=== PATIENT | female | born 1960 | race Caucasian/White ===

== ENCOUNTER → 2018-02-02 | Outpatient (CLI) | payer OTHER ==
[2018-02-02] MEDS: GADOBUTROL 10 MMOL/10 ML VIAL IV (13:10)
== END | disposition home or self-care (01) ==
LOC: KCIC MRI 12:07
DX: G50.0 Trigeminal neuralgia (principal)
CPT/HCPCS: 70553; A9585

== ENCOUNTER → 2018-10-05 | Outpatient (CLI) | payer OTHER ==
[~2018-10-05] MED LIST: ACYC400T PO; ASPI325T8 PO; ATEN50TA PO; CELE100C PO; FLEC100T PO; FLUT100D IH; PRED-220 PO; PROAIR HFA8.5 GM INH
--- NOTE | 2018-10-05 14:21 | KCIC ---
MRI left hip without contrast dated 10/05/2018 12:30 PM Indication: Left hip pain , groin pain pain after doing yoga 3 weeks ago. Comparison: No comparison is available. Technique: Routine multiplanar multisequence imaging performed. . Findings: Moderate hypertrophic change of the left hip joint with thinning and surface irregularity of the articular cartilage. There is suspected full-thickness cartilage loss at the anterior acetabulum and anterior weightbearing surfaces femoral head. Patchy subchondral edema. There is blunted morphology of the anterior superior labrum with some linear signal extending into the labral substance near the 12:00 position. Small joint effusion. No loose body. There is a small curvilinear focus of low T1 signal within the femoral neck laterally near the level of the physeal scar (coronal images 14 and 15). Intermediate T2 signal within the gluteus minimus and gluteus medius tendons at the trochanteric attachment. No significant trochanteric bursal fluid collection. Mild fatty atrophy of the gluteus minimus muscle. Proximal hamstring tendon complex is intact. Iliopsoas is intact. Mild hypertrophic change of the right hip joint on the wide [id number] STIR sequences. Bone marrow signal is otherwise homogeneous. Mild degenerative change of the pubic symphysis. Limited imaged portions the pelvis unremarkable. IMPRESSION: 1. 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 2. Degenerative tearing of the left hip labrum. 3. Small left hip joint effusion. 4. Small curvilinear focus of signal abnormality at the femoral neck on the left, reactive edema versus stress reaction or early stress fracture. 5. Mild degenerative change at the right hip, incompletely evaluated. 6. Mild gluteus minimus and gluteus medius tendinosis. Electronically signed by: Fan Monteiro MD (10/05/2018 2:18 PM) [facility]-KCIC2
== END | disposition home or self-care (01) ==
LOC: KCIC MRI 12:37
DX: S73.192A Other sprain of left hip, initial encounter (principal); M16.12 Unilateral primary osteoarthritis, left hip; M94.252 Chondromalacia, left hip; X58.XXXA Exposure to other specified factors, initial encounter; Y93.89 Activity, other specified; Y92.89 Other specified places as the place of occurrence of the external cause; Y99.8 Other external cause status
CPT/HCPCS: 73721

== ENCOUNTER 2020-07-27 13:15 | Observation (INO) | payer OTHER ==
[2020-07-26 19:35] VITALS: BP 121/70
[~2020-07-27] VITALS: Ht 162.6 cm; Wt 103.6 kg
[~2020-07-27 13:15] MED LIST changes: +ALBU2.5V8 INH; -PROAIR HFA8.5 GM INH
[2020-07-27] MEDS ORDERED: IV NORMAL SALINE 500ML BAG 500 ML IV ONE (13:30)
--- NOTE | 2020-07-27 13:44 | PHYS DOC ---
Past Medical History Past Medical History: A-Fib, Asthma, Hypothyroid Past Surgical History: Hip Replacement, Hysterectomy Additional Past Surgical Histo: CRANIOTOMY, L THUMB JOINT REPLACEMENT Smoking Status: Former Smoker Alcohol Use: Rarely Additional Information: GLASS OF WINE EVERY ONCE IN A WHILE General Adult EDM: Chief Complaint: MECHANICAL FALL HPI: HPI: 59-year-old female presents emergency department by EMS after falling and injuring her left arm. She was going down the stairs when she fell and injured her left arm. Paramedics were called. Patient had a deformity of the left humeral region. They put her in a position of comfort in anatomic position and brought her in for evaluation. She has some moderate pain that was treated with fentanyl which is improved her pain. It was nonradiating without alleviating factors. She denies any numbness weakness or tingling. She denies any other injuries. Review of systems : she denies head injury neck pain back pain hip pain chest pain or abdominal pain. All other review of systems negative. ED course: 59-year-old female presenting with left arm injury after a fall. The remainder the secondary survey shows no other acute traumatic injuries. X-rays of the humerus and shoulder were obtained. X-ray shows midshaft humeral fracture. I spoke with Dr. De La Cruz about the patient. We will place the patient in a sling with a sugar tong around the humerus. Patient was placed in a sling. Basic bridge orders placed. No other traumatic injuries seen on secondary survey. Heart Score: Risk Factors: Risk Factors: DM, Current or recent (<one month) smoker, HTN, HLP, family history of CAD, obesity. Risk Scores: Score 0 - 3: 2.5% MACE over next 6 weeks - Discharge Home Score 4 - 6: 20.3% MACE over next 6 weeks - Admit for Clinical Observation Score 7 - 10: 72.7% MACE over next 6 weeks - Early Invasive Strategies Current Medications: Current Medications Medications (Trade) Dose Ordered Sig/Gabriela Start Time Stop Time Status Last Admin Dose Admin Sodium Chloride 500 ml @ 500 mls/hr 1X ONCE 07/27/20 13:30 07/27/20 14:29 Allergies: Allergies: Allergies Coded Allergies Type Severity Reaction Last Updated Verified No Known Drug Allergies 02/02/18 No Physical Exam: PE: General Appearance alert, cooperative, no distress, responsive Head Normocephalic, without obvious abnormality, atraumatic Eyes conjunctivae/corneas clear. PERRL, EOM's intact. Nose Nares normal. Septum midline. Mucosa normal. No drainage or sinus t enderness. Throat no blood or lacerations, normal alignment Neck supple, symmetrical, trachea midline, cervical collar in place Back/Spine symmetric, normal curvature. ROM normal, no abrasions, no tenderness to palpation, no step-offs Lungs clear to auscultation bilaterally Chest Wall normal ribcage without tenderness to palpation, crepitus or emphysema Heart [] rate and regular rhythm, S1, S2 normal, no murmur, click, rub or gallop Abdomen soft, non-tender. Bowel sounds normal. No masses, no organomegaly Pelvic stable Extremities Right upper extremity: Nontender at the joints with normal range of motion. Palpable pulse with 2-second cap refill. Left upper extremity: Deformity of the humeral region. Neurovascular intact with 2-second cap refill. Tenderness palpation Lower extremities bilaterally are nontender at the joints with normal range of motion. Palpable pulse with 2-second cap refill. No pain in the hips with passive range of motion of the hips. Stable pelvis. Pulses 2+ and symmetric Skin Skin color, texture, turgor normal. No rashes or lesions Neurologic Grossly normal Eye opening: (4) spontaneous Best motor response: (6) obeys verbal command Best verbal response: (5) oriented and converses Total Mark (E + M + V) = 15 Current Patient Data: Vital Signs: Vital Signs Date Time Temp Pulse Resp B/P (MAP) Pulse Ox O2 Delivery O2 Flow Rate FiO2 07/27/20 13:15 97.9 68 18 107/68 (81) 96 Room Air 97.9 EKG: EKG: [] Radiology/Procedures: Radiology/Procedures: [] Course & Med Decision Making: Course & Med Decision Making Pertinent Labs and Imaging studies reviewed. (See chart for details) [] Bebaon Disclaimer: Poli Disclaimer: This electronic medical record was generated, in whole or in part, using a voice recognition dictation system. Departure Departure Impression: Primary Impression: Injury of left upper arm Disposition: ADMITTED INPATIENT Admitting Physician: DAKOTAH Condition: STABLE Referrals: JODIE PZA DO, MPH (PCP) Justicifation of Admission Dx: Justifications for Admission: Justification of Admission Dx: Yes Comments: HUMERUS FRACTURE RAMOS,VENICE L MD Jul 27, 2020 13:44
[2020-07-27 14:20] LABS: BASO # 0.1 x10^3/uL (0.0-0.2); BASO % 1 % (0-3); EOS # 0.1 x10^3/uL (0.0-0.7); EOS % 1 % (0-3); HEMOGLOBIN 14.5 g/dL (12.0-15.5); LYMPH # 1.2 x10^3/uL (1.0-4.8); LYMPH % 11 % (24-48); MEAN CORPUSCULAR HEMOGLOBIN 33 pg (25-35); MEAN CORPUSCULAR HGB CONC 33 g/dL (31-37); MEAN CORPUSCULAR VOLUME 98 fL (79-100); MONO # 0.5 x10^3/uL (0.0-1.1); MONO % 4 % (0-9); NEUT % 83 % (31-73); PLATELET COUNT 213 x10^3/uL (140-400); RED BLOOD COUNT 4.48 x10^6/uL (3.50-5.40); WHITE BLOOD COUNT 10.8 x10^3/uL (4.0-11.0)
--- NOTE | 2020-07-27 14:42 | RAD ---
HUMERUS LEFT, SHOULDER 2+V LEFT DATE: 07/27/2020 1:24 PM INDICATION: LEFT ARM INJURY, pain COMPARISON: None. FINDINGS: Bones: Acute fracture of the mid to distal humeral diaphysis with lateral angulation. Joints: Mild degenerative changes of the acromioclavicular joint. Glenohumeral joint is congruent. The acromiohumeral distance is not narrowed. Miscellaneous: No abnormal soft tissue calcifications in the shoulder. IMPRESSION: Acute displaced humeral diaphysis fracture. Electronically signed by: Dimas Colunga MD (07/27/2020 2:39 PM) [id number]
[2020-07-27 14:44] LABS: CALCIUM 8.6 mg/dL (8.5-10.1); CREATININE 0.9 mg/dL (0.6-1.0); GFR 63.7; POTASSIUM 4.2 mmol/L (3.5-5.1)
[2020-07-27 14:50] LABS: ALBUMIN 3.3 g/dL (3.4-5.0); ALBUMIN/GLOBULIN RATIO 1.1 (1.0-1.7); TOTAL BILIRUBIN 0.3 mg/dL (0.2-1.0); TOTAL PROTEIN 6.3 g/dL (6.4-8.2)
[2020-07-27] MEDS ORDERED: IV NORMAL SALINE 1000ML BAG 1,000 ML IV SCH (15:45)
[2020-07-27] MEDS: HYDROmorphone 2 MG/ML VIAL IV PRN ×2 (16:11→19:31)
--- NOTE | 2020-07-27 16:11 | PDOC2 ---
CONSULT Date of Consult Date of Consult DATE: 07/27/20 TIME: 16:08 Reason for Consult Reason for Consult: Closed left humeral shaft fracture, reportedly neurovascularly intact. Referring Physician Referring Physician: Lucas Identification/Chief Complaint Chief Complaint Left humerus fracture Source Source: Chart review, Patient History of Present Illness Reason for Visit: 59-year-old right-handed woman who fell at home, and fractured her left humerus. She was brought to the hospital by EMS. X-rays showed a humeral shaft fracture. This was closed, and she was neurovascularly intact and it is an isolated injury. When I spoke to Dr. Ramos yesterday I recommended nonoperative treatment in a splint. The patient was admitted for pain control I presume. She was under the impression she was having surgery today but I had a long discussion with her about the risks benefits and alternatives of surgical versus nonoperative management, and I recommended nonoperative treatment for her closed isolated neurovascularly intact humeral shaft fracture. She is currently in a splint, and we helped readjust her arm and put it in a sling in the appropriate position. She has some pain and some fracture crepitus with movement but otherwise reasonably comfortable. She denies neurovascular dysfunction distally. Past Medical History Cardiovascular: AFIB Pulmonary: Asthma Endocrine: Hypothyroidism Past Surgical History Past Surgical History craniotomy hip replacement thumb surgery Social History Social History occasional wine lives with in [place] has a cane and a walker at home Quit ALCOHOL: occassional Lives: with Family Current Problem List Problem List Problems Medical Problems: (1) Injury of left upper arm Status: Acute Current Medications Current Medications Current Medications Sodium Chloride 500 ml @ 500 mls/hr 1X ONCE IV Last administered on 07/27/20at 13:49; Start 07/27/20 at 13:30; Stop 07/27/20 at 14:29; Status DC Hydromorphone HCl (Dilaudid) 0.5 mg PRN Q30MIN PRN IV SEVERE PAIN 7-10; Start 07/27/20 at 15:45 Sodium Chloride 1,000 ml @ 100 mls/hr Q10H IV ; Start 07/27/20 at 15:45; Stop 07/27/20 at 19:44 Active Scripts Active Reported Proair Hfa Inhaler (Albuterol Sulfate) 8.5 Gm Hfa.aer.ad 1 Puff INH PRN Q6HRS PRN Flovent 100MCG Diskus (Fluticasone Propionate) 100 Mcg Disk.w.dev 1 Puff IH BID Celebrex (Celecoxib) 100 Mg Capsule 1 Cap PO BID Atenolol 50 Mg Tablet 1 Tab PO DAILY Flecainide Acetate 100 Mg Tablet 1 Tab PO BID Prednisone 10 Mg Tablet 10 Mg PO DAILY Acyclovir 400 Mg Tablet 1 Tab PO BID Aspirin 325 Mg Tablet 1 Tab PO DAILY Allergies Allergies: Coded Allergies: hydrocodone (Verified Allergy, Mild, N/V,"MAKES ME MEAN", 07/27/20) oxycodone (Verified Allergy, Mild, N/V/"MAKES ME MEAN", 07/27/20) ROS Review of System Review of systems : she denies head injury neck pain back pain hip pain chest pain or abdominal pain. All other review of systems negative. Physical Exam General: Alert, Cooperative HEENT: Atraumatic Heart: Regular rate Abdomen: Soft Extremities: Other (The left humerus is splinted, with a sugar tong/coaptation type splint, and appears comfortable in the splint. The alignment is grossly normal in the splint. The sling is intact now. Light touch sensation, capillary refill, pulses and motor function are all intact at the hand. She demonstrated radial median and ulnar nerve function without difficulty.) Skin: No significant lesion Neuro: Normal tone, Sensation intact MUSCULOSKELETAL: Abnormal exam of left (humerus as above) Vitals VITALS Vital Signs Date Time Temp Pulse Resp B/P (MAP) Pulse Ox O2 Delivery O2 Flow Rate FiO2 07/27/20 13:15 97.9 68 18 107/68 (81) 96 Room Air 97.9 Labs Labs Laboratory Tests Test 07/27/20 14:09 07/27/20 15:10 White Blood Count 10.8 x10^3/uL (4.0-11.0) Red Blood Count 4.48 x10^6/uL (3.50-5.40) Hemoglobin 14.5 g/dL (12.0-15.5) Hematocrit 44.0 % (36.0-47.0) Mean Corpuscular Volume 98 fL (79-100) Mean Corpuscular Hemoglobin 33 pg (25-35) Mean Corpuscular Hemoglobin Concent 33 g/dL (31-37) Red Cell Distribution Width 15.0 % (11.5-14.5) Platelet Count 213 x10^3/uL (140-400) Neutrophils (%) (Auto) 83 % (31-73) Lymphocytes (%) (Auto) 11 % (24-48) Monocytes (%) (Auto) 4 % (0-9) Eosinophils (%) (Auto) 1 % (0-3) Basophils (%) (Auto) 1 % (0-3) Neutrophils # (Auto) 9.0 x10^3/uL (1.8-7.7) Lymphocytes # (Auto) 1.2 x10^3/uL (1.0-4.8) Monocytes # (Auto) 0.5 x10^3/uL (0.0-1.1) Eosinophils # (Auto) 0.1 x10^3/uL (0.0-0.7) Basophils # (Auto) 0.1 x10^3/uL (0.0-0.2) Sodium Level 143 mmol/L (136-145) Potassium Level 4.2 mmol/L (3.5-5.1) Chloride Level 109 mmol/L (98-107) Carbon Dioxide Level 24 mmol/L (21-32) Anion Gap 10 (6-14) Blood Urea Nitrogen 24 mg/dL (7-20) Creatinine 0.9 mg/dL (0.6-1.0) Estimated GFR (Cockcroft-Gault) 63.7 BUN/Creatinine Ratio 27 (6-20) Glucose Level 133 mg/dL (70-99) Calcium Level 8.6 mg/dL (8.5-10.1) Total Bilirubin 0.3 mg/dL (0.2-1.0) Aspartate Amino Transf (AST/SGOT) 14 U/L (15-37) Alanine Aminotransferase (ALT/SGPT) 21 U/L (14-59) Alkaline Phosphatase 83 U/L (46-116) Total Protein 6.3 g/dL (6.4-8.2) Albumin 3.3 g/dL (3.4-5.0) Albumin/Globulin Ratio 1.1 (1.0-1.7) SARS-CoV-2 Antigen (Rapid) Negative (NEGATIVE) Laboratory Tests Test 07/27/20 14:09 07/27/20 15:10 White Blood Count 10.8 x10^3/uL (4.0-11.0) Red Blood Count 4.48 x10^6/uL (3.50-5.40) Hemoglobin 14.5 g/dL (12.0-15.5) Hematocrit 44.0 % (36.0-47.0) Mean Corpuscular Volume 98 fL (79-100) Mean Corpuscular Hemoglobin 33 pg (25-35) Mean Corpuscular Hemoglobin Concent 33 g/dL (31-37) Red Cell Distribution Width 15.0 % (11.5-14.5) Platelet Count 213 x10^3/uL (140-400) Neutrophils (%) (Auto) 83 % (31-73) Lymphocytes (%) (Auto) 11 % (24-48) Monocytes (%) (Auto) 4 % (0-9) Eosinophils (%) (Auto) 1 % (0-3) Basophils (%) (Auto) 1 % (0-3) Neutrophils # (Auto) 9.0 x10^3/uL (1.8-7.7) Lymphocytes # (Auto) 1.2 x10^3/uL (1.0-4.8) Monocytes # (Auto) 0.5 x10^3/uL (0.0-1.1) Eosinophils # (Auto) 0.1 x10^3/uL (0.0-0.7) Basophils # (Auto) 0.1 x10^3/uL (0.0-0.2) Sodium Level 143 mmol/L (136-145) Potassium Level 4.2 mmol/L (3.5-5.1) Chloride Level 109 mmol/L (98-107) Carbon Dioxide Level 24 mmol/L (21-32) Anion Gap 10 (6-14) Blood Urea Nitrogen 24 mg/dL (7-20) Creatinine 0.9 mg/dL (0.6-1.0) Estimated GFR (Cockcroft-Gault) 63.7 BUN/Creatinine Ratio 27 (6-20) Glucose Level 133 mg/dL (70-99) Calcium Level 8.6 mg/dL (8.5-10.1) Total Bilirubin 0.3 mg/dL (0.2-1.0) Aspartate Amino Transf (AST/SGOT) 14 U/L (15-37) Alanine Aminotransferase (ALT/SGPT) 21 U/L (14-59) Alkaline Phosphatase 83 U/L (46-116) Total Protein 6.3 g/dL (6.4-8.2) Albumin 3.3 g/dL (3.4-5.0) Albumin/Globulin Ratio 1.1 (1.0-1.7) SARS-CoV-2 Antigen (Rapid) Negative (NEGATIVE) Images Images Report reviewed and images independently reviewed. Although the fracture appears impressive radiographically, a closed isolated humeral shaft fracture without neurovascular injury is often best treated nonoperatively. [facility] [address] [place] [address] IMAGING REPORT Signed PATIENT: GLENNA LEDEZMA RACCOUNT: [id number] : 1960 LOCATION: ER AGE: 59 SEX: F EXAM STATUS: REG ER ORD. PHYSICIAN: VENICE RAMOS MD REASON: LEFT ARM INJURY PROCEDURE: HUMERUS LEFT HUMERUS LEFT, SHOULDER 2+V LEFT DATE: 07/27/2020 1:24 PM INDICATION: LEFT ARM INJURY, pain COMPARISON: None. FINDINGS: Bones: Acute fracture of the mid to distal humeral diaphysis with lateral angulation. Joints: Mild degenerative changes of the acromioclavicular joint. Glenohumeral joint is congruent. The acromiohumeral distance is not narrowed. Miscellaneous: No abnormal soft tissue calcifications in the shoulder. IMPRESSION: Acute displaced humeral diaphysis fracture. Electronically signed by: Jesus Alberto Colunga MD (07/27/2020 2:39 PM) [id number] DICTATED and SIGNED BY: JESUS ALBERTO COLUNGA MD DATE: 07/27/20 1439 Assessment/Plan Assessment/Plan Closed left humeral shaft fracture. Plan is for nonoperative treatment. Sling and splint. I discussed nonoperative treatment with her and gave her a printed handout from "[facility]" on midshaft humerus fracture treatment, and a handout from the [employer] on humeral shaft fracture treatment, both handouts outlining nonoperative treatment with the splint she has on, and then conversion to a Valerio (clamshell) style brace in 1-3 weeks. She requested tramadol for pain. I have already electronically prescribed that to Norman at the [facility] [address]. I will prescribe Tramadol now in hospital for pain, and therapy should get her up out of bed, and she may be discharged today. She can follow-up with me in about 7 to 10 days, or she mentioned she may follow-up at which is also acceptable. MINH SIMONS MD Jul 27, 2020 16:11
[2020-07-27 19:35] VITALS: BP 121/70
--- NOTE | 2020-07-27 19:35 | NUR ---
The patient, GLENNA LEDEZMA, 59 y/o, F admitted by TAYLOR KIMBROUGH MD, was given written information regarding hospital policies, unit procedures and contact persons. Patient admitted with left humerus fracture s/p fall. Patient alert and oriented x 4. Patient oriented to room, call light, phone and POC. Patient instructed on need to call for assistance, call light in reach. Patient verbalized understanding. Valuables were checked and documented.
--- NOTE | 2020-07-27 20:08 | PDOC1 ---
History and Physical Date of Admission Date of Admission DATE: 07/27/20 TIME: 20:07 Identification/Chief Complaint Chief Complaint Humeral fracture Source Source: Patient History of Present Illness History of Present Illness 59 yo female who presents with acute left humeral fracture. She suffered a mechanical fall down the stairs of her home around 1100, landing on her left side. She reports left arm pain, 10/10. She immediately contacted EMS. Pain is aggravated by movement, improved with pain medications. She denies any fever, chills, or head injury. Past Medical History Cardiovascular: AFIB Pulmonary: Asthma Endocrine: Hypothyroidism Past Surgical History Past Surgical History: Total hip replacement, Hysterectomy Family History Family History: Other (Non-contributory) Social History Smoke: Quit ALCOHOL: occassional Drugs: None Current Problem List Problem List Problems Medical Problems: (1) Injury of left upper arm Status: Acute Current Medications Current Medications Current Medications Sodium Chloride 500 ml @ 500 mls/hr 1X ONCE IV Last administered on 07/27/20at 13:49; Start 07/27/20 at 13:30; Stop 07/27/20 at 14:29; Status DC Hydromorphone HCl (Dilaudid) 0.5 mg PRN Q30MIN PRN IV SEVERE PAIN 7-10 Last administered on 07/27/20at 19:31; Start 07/27/20 at 15:45; Stop 07/27/20 at 19:32; Status DC Sodium Chloride 1,000 ml @ 100 mls/hr Q10H IV Last administered on 07/27/20at 16:12; Start 07/27/20 at 15:45; Stop 07/27/20 at 19:44; Status DC Active Scripts Active Reported Proair Hfa Inhaler (Albuterol Sulfate) 8.5 Gm Hfa.aer.ad 1 Puff INH PRN Q6HRS PRN Flovent 100MCG Diskus (Fluticasone Propionate) 100 Mcg Disk.w.dev 1 Puff IH BID Celebrex (Celecoxib) 100 Mg Capsule 1 Cap PO BID Atenolol 50 Mg Tablet 1 Tab PO DAILY Flecainide Acetate 100 Mg Tablet 1 Tab PO BID Prednisone 10 Mg Tablet 10 Mg PO DAILY Acyclovir 400 Mg Tablet 1 Tab PO BID Aspirin 325 Mg Tablet 1 Tab PO DAILY Allergies Allergies: Coded Allergies: hydrocodone (Verified Allergy, Mild, N/V,"MAKES ME MEAN", 07/27/20) oxycodone (Verified Allergy, Mild, N/V/"MAKES ME MEAN", 07/27/20) ROS General: No: Chills, Night Sweats PSYCHOLOGICAL ROS: No: Anxiety, Depression Eyes: No Blurry vision, No Double vision HEENT: No: Heacaches, Sore Throat ALLERGY AND IMMUNOLOGY: No: Hives, Nasal Congestion Hematological and Lymphatic: No: Bleeding Problems, Blood Clots Respiratory: No: Cough, Shortness of breath Cardiovascular: No Chest Pain, No Palpitations Gastrointestinal: No Nausea, No Vomiting, No Abdominal Pain Genitourinary: No Dysuria, No Urgency Musculoskeletal: Yes Joint Pain, Yes Muscle Pain; No Gait Disturbance Neurological: No Dizziness, No Numbness/Tingling Skin: No Pruritus, No Rash Physical Exam General: Alert, Oriented X3, Cooperative, mild distress HEENT: PERRLA Lungs: Clear to auscultation, Normal air movement Heart: RRR, no murmurs Cardiovascular: S1, S2 Abdomen: Normal bowel sounds, Soft, No tenderness, No hepatosplenomegaly, No masses Extremities: Normal pulses, Other (Left arm wrapped and bandaged) Skin: No rashes, No breakdown, No significant lesion Neuro: Sensation intact, Other (Left hand neurologically intact) Psych/Mental Status: Mental status NL, Mood NL Vitals Vitals Vital Signs Date Time Temp Pulse Resp B/P (MAP) Pulse Ox O2 Delivery O2 Flow Rate FiO2 07/27/20 19:31 18 98 07/27/20 19:06 122 107/79 (88) Room Air 07/27/20 13:15 97.9 97.9 Labs Labs Laboratory Tests Test 07/27/20 14:09 07/27/20 15:10 White Blood Count 10.8 x10^3/uL (4.0-11.0) Red Blood Count 4.48 x10^6/uL (3.50-5.40) Hemoglobin 14.5 g/dL (12.0-15.5) Hematocrit 44.0 % (36.0-47.0) Mean Corpuscular Volume 98 fL (79-100) Mean Corpuscular Hemoglobin 33 pg (25-35) Mean Corpuscular Hemoglobin Concent 33 g/dL (31-37) Red Cell Distribution Width 15.0 % (11.5-14.5) Platelet Count 213 x10^3/uL (140-400) Neutrophils (%) (Auto) 83 % (31-73) Lymphocytes (%) (Auto) 11 % (24-48) Monocytes (%) (Auto) 4 % (0-9) Eosinophils (%) (Auto) 1 % (0-3) Basophils (%) (Auto) 1 % (0-3) Neutrophils # (Auto) 9.0 x10^3/uL (1.8-7.7) Lymphocytes # (Auto) 1.2 x10^3/uL (1.0-4.8) Monocytes # (Auto) 0.5 x10^3/uL (0.0-1.1) Eosinophils # (Auto) 0.1 x10^3/uL (0.0-0.7) Basophils # (Auto) 0.1 x10^3/uL (0.0-0.2) Sodium Level 143 mmol/L (136-145) Potassium Level 4.2 mmol/L (3.5-5.1) Chloride Level 109 mmol/L (98-107) Carbon Dioxide Level 24 mmol/L (21-32) Anion Gap 10 (6-14) Blood Urea Nitrogen 24 mg/dL (7-20) Creatinine 0.9 mg/dL (0.6-1.0) Estimated GFR (Cockcroft-Gault) 63.7 BUN/Creatinine Ratio 27 (6-20) Glucose Level 133 mg/dL (70-99) Calcium Level 8.6 mg/dL (8.5-10.1) Total Bilirubin 0.3 mg/dL (0.2-1.0) Aspartate Amino Transf (AST/SGOT) 14 U/L (15-37) Alanine Aminotransferase (ALT/SGPT) 21 U/L (14-59) Alkaline Phosphatase 83 U/L (46-116) Total Protein 6.3 g/dL (6.4-8.2) Albumin 3.3 g/dL (3.4-5.0) Albumin/Globulin Ratio 1.1 (1.0-1.7) SARS-CoV-2 Antigen (Rapid) Negative (NEGATIVE) Laboratory Tests Test 07/27/20 14:09 07/27/20 15:10 White Blood Count 10.8 x10^3/uL (4.0-11.0) Red Blood Count 4.48 x10^6/uL (3.50-5.40) Hemoglobin 14.5 g/dL (12.0-15.5) Hematocrit 44.0 % (36.0-47.0) Mean Corpuscular Volume 98 fL (79-100) Mean Corpuscular Hemoglobin 33 pg (25-35) Mean Corpuscular Hemoglobin Concent 33 g/dL (31-37) Red Cell Distribution Width 15.0 % (11.5-14.5) Platelet Count 213 x10^3/uL (140-400) Neutrophils (%) (Auto) 83 % (31-73) Lymphocytes (%) (Auto) 11 % (24-48) Monocytes (%) (Auto) 4 % (0-9) Eosinophils (%) (Auto) 1 % (0-3) Basophils (%) (Auto) 1 % (0-3) Neutrophils # (Auto) 9.0 x10^3/uL (1.8-7.7) Lymphocytes # (Auto) 1.2 x10^3/uL (1.0-4.8) Monocytes # (Auto) 0.5 x10^3/uL (0.0-1.1) Eosinophils # (Auto) 0.1 x10^3/uL (0.0-0.7) Basophils # (Auto) 0.1 x10^3/uL (0.0-0.2) Sodium Level 143 mmol/L (136-145) Potassium Level 4.2 mmol/L (3.5-5.1) Chloride Level 109 mmol/L (98-107) Carbon Dioxide Level 24 mmol/L (21-32) Anion Gap 10 (6-14) Blood Urea Nitrogen 24 mg/dL (7-20) Creatinine 0.9 mg/dL (0.6-1.0) Estimated GFR (Cockcroft-Gault) 63.7 BUN/Creatinine Ratio 27 (6-20) Glucose Level 133 mg/dL (70-99) Calcium Level 8.6 mg/dL (8.5-10.1) Total Bilirubin 0.3 mg/dL (0.2-1.0) Aspartate Amino Transf (AST/SGOT) 14 U/L (15-37) Alanine Aminotransferase (ALT/SGPT) 21 U/L (14-59) Alkaline Phosphatase 83 U/L (46-116) Total Protein 6.3 g/dL (6.4-8.2) Albumin 3.3 g/dL (3.4-5.0) Albumin/Globulin Ratio 1.1 (1.0-1.7) SARS-CoV-2 Antigen (Rapid) Negative (NEGATIVE) Images Images HUMERUS LEFT, SHOULDER 2+V LEFT DATE: 07/27/2020 1:24 PM INDICATION: LEFT ARM INJURY, pain COMPARISON: None. FINDINGS: Bones: Acute fracture of the mid to distal humeral diaphysis with lateral angulation. Joints: Mild degenerative changes of the acromioclavicular joint. Glenohumeral joint is congruent. The acromiohumeral distance is not narrowed. Miscellaneous: No abnormal soft tissue calcifications in the shoulder. IMPRESSION: Acute displaced humeral diaphysis fracture. VTE Prophylaxis Ordered VTE Prophylaxis Devices: No VTE Pharmacological Prophylaxi: Yes Assessment/Plan Assessment/Plan Acute displaced humeral diaphysis fracture Plan: Pain Management Consult to Orthopedics; plan for surgery in the morning Resume home medications VTE prophylaxis Full Code Justifications for Admission Other Justification TAYLOR KIMBROUGH MD Jul 27, 2020 20:08
[2020-07-27] MEDS ORDERED: BISACODYL 10 MG SUPP.RECT. PR PRN (20:15)
[2020-07-27] MEDS ORDERED: ALBUTEROL SULFATE 2.5 MG/3 ML NEBU. NEB PRN (20:15)
[2020-07-27] MEDS ORDERED: ONDANSETRON PF 4 MG/2 ML VIAL. IVP PRN (20:15)
[2020-07-27] MEDS: IV NORMAL SALINE 1000ML BAG 1,000 ML IV SCH ×2 (20:30→22:12)
[2020-07-27] MEDS ORDERED: THYR60TA PO (21:07)
[2020-07-27] MEDS ORDERED: ATENOLOL 50 MG TABLET. PO SCH (21:30)
[2020-07-27] MEDS: HEPARIN for SUB-Q USE 5,000 UNIT/ML VIAL. SQ SCH (22:17)
[2020-07-27 23:00] VITALS: BP 113/64
[2020-07-28] MEDS: FLECAINIDE ACETATE 50 MG TABLET. PO SCH ×2 (00:21→09:00)
[2020-07-28] MEDS: HYDROmorphone 2 MG/ML VIAL IVP PRN ×2 (00:28→11:13)
[2020-07-28] MEDS: IV NORMAL SALINE 1000ML BAG 1,000 ML IV SCH (02:29)
[2020-07-28 03:00] VITALS: BP 107/56
[2020-07-28] MEDS: HEPARIN for SUB-Q USE 5,000 UNIT/ML VIAL. SQ SCH ×2 (06:00→14:29)
[2020-07-28 07:00] VITALS: BP 116/65
--- NOTE | 2020-07-28 08:02 | NUR ---
Consult called top Dr. Lawson's service, spoke with Kate who stated she would contact Dr. Lawson.
[2020-07-28 08:15] LABS: BASO # 0.1 x10^3/uL (0.0-0.2); BASO % 1 % (0-3); EOS # 0.1 x10^3/uL (0.0-0.7); EOS % 1 % (0-3); HEMATOCRIT 42.1 % (36.0-47.0); HEMOGLOBIN 13.9 g/dL (12.0-15.5); LYMPH # 1.8 x10^3/uL (1.0-4.8); LYMPH % 24 % (24-48); MEAN CORPUSCULAR HEMOGLOBIN 32 pg (25-35); MEAN CORPUSCULAR HGB CONC 33 g/dL (31-37); MEAN CORPUSCULAR VOLUME 96 fL (79-100); MONO # 0.5 x10^3/uL (0.0-1.1); MONO % 6 % (0-9); NEUT # 5.3 x10^3/uL (1.8-7.7); NEUT % 68 % (31-73); PLATELET COUNT 217 x10^3/uL (140-400); RED BLOOD COUNT 4.36 x10^6/uL (3.50-5.40); RED CELL DISTRIBUTION WIDTH 15.1 % (11.5-14.5); WHITE BLOOD COUNT 7.7 x10^3/uL (4.0-11.0)
[2020-07-28 08:30] LABS: CALCIUM 8.1 mg/dL (8.5-10.1); CREATININE 0.7 mg/dL (0.6-1.0); GFR 85.1; POTASSIUM 3.8 mmol/L (3.5-5.1)
[2020-07-28] MEDS ORDERED: FLECAINIDE ACETATE 50 MG TABLET. PO SCH (09:00)
[2020-07-28] MEDS ORDERED: ATENOLOL 50 MG TABLET. PO SCH (09:00)
--- NOTE | 2020-07-28 10:51 | PDOC ---
PROGRESS NOTES Date of Service: DATE: 07/28/20 TIME: 10:51 Chief Complaint Chief Complaint VTE Prophylaxis Ordered VTE Prophylaxis Devices: No VTE Pharmacological Prophylaxi: Yes impression Assessment/Plan Acute displaced humeral diaphysis fracture MORBID OBESITY Gait instability fall risk high Plan: admit Pain Management Consult to Orthopedics; plan is for nonoperative treatment. Sling and splint. Resume home medications VTE prophylaxis Full Code PT/OT to clear for stable ADL'S Justifications for Admission Justifications for Admission Other Justification History of Present Illness History of Present Illness History of Present Illness History of Present Illness 59 yo female who presents with acute left humeral fracture. She suffered a mechanical fall down the stairs of her home around 1100, landing on her left side. She reports left arm pain, 10/10. She immediately contacted EMS. Pain is aggravated by movement, improved with pain medications. She denies any fever, chills, or head injury. Past Medical History Cardiovascular: AFIB Pulmonary: Asthma Endocrine: Hypothyroidism Past Surgical History Past Surgical History: Total hip replacement, Hysterectomy Family History Family History: Other (Non-contributory) Social History Smoke: Quit ALCOHOL: occassional Drugs: None Vitals Vitals Vital Signs Date Time Temp Pulse Resp B/P (MAP) Pulse Ox O2 Delivery O2 Flow Rate FiO2 07/28/20 07:00 98.6 75 19 116/65 (82) 96 Room Air 98.6 Physical Exam General: Alert, Oriented X3, Cooperative, No acute distress, mild distress Heart: No murmurs Abdomen: Normal bowel sounds, Soft, No tenderness, No hepatosplenomegaly, No masses Extremities: Normal pulses, Other (Left arm wrapped and bandaged) Skin: No rashes, No breakdown, No significant lesion Labs LABS Laboratory Tests Test 07/27/20 14:09 07/27/20 15:10 07/28/20 07:40 White Blood Count 10.8 x10^3/uL (4.0-11.0) 7.7 x10^3/uL (4.0-11.0) Red Blood Count 4.48 x10^6/uL (3.50-5.40) 4.36 x10^6/uL (3.50-5.40) Hemoglobin 14.5 g/dL (12.0-15.5) 13.9 g/dL (12.0-15.5) Hematocrit 44.0 % (36.0-47.0) 42.1 % (36.0-47.0) Mean Corpuscular Volume 98 fL (79-100) 96 fL (79-100) Mean Corpuscular Hemoglobin 33 pg (25-35) 32 pg (25-35) Mean Corpuscular Hemoglobin Concent 33 g/dL (31-37) 33 g/dL (31-37) Red Cell Distribution Width 15.0 % (11.5-14.5) 15.1 % (11.5-14.5) Platelet Count 213 x10^3/uL (140-400) 217 x10^3/uL (140-400) Neutrophils (%) (Auto) 83 % (31-73) 68 % (31-73) Lymphocytes (%) (Auto) 11 % (24-48) 24 % (24-48) Monocytes (%) (Auto) 4 % (0-9) 6 % (0-9) Eosinophils (%) (Auto) 1 % (0-3) 1 % (0-3) Basophils (%) (Auto) 1 % (0-3) 1 % (0-3) Neutrophils # (Auto) 9.0 x10^3/uL (1.8-7.7) 5.3 x10^3/uL (1.8-7.7) Lymphocytes # (Auto) 1.2 x10^3/uL (1.0-4.8) 1.8 x10^3/uL (1.0-4.8) Monocytes # (Auto) 0.5 x10^3/uL (0.0-1.1) 0.5 x10^3/uL (0.0-1.1) Eosinophils # (Auto) 0.1 x10^3/uL (0.0-0.7) 0.1 x10^3/uL (0.0-0.7) Basophils # (Auto) 0.1 x10^3/uL (0.0-0.2) 0.1 x10^3/uL (0.0-0.2) Sodium Level 143 mmol/L (136-145) 142 mmol/L (136-145) Potassium Level 4.2 mmol/L (3.5-5.1) 3.8 mmol/L (3.5-5.1) Chloride Level 109 mmol/L (98-107) 110 mmol/L (98-107) Carbon Dioxide Level 24 mmol/L (21-32) 23 mmol/L (21-32) Anion Gap 10 (6-14) 9 (6-14) Blood Urea Nitrogen 24 mg/dL (7-20) 14 mg/dL (7-20) Creatinine 0.9 mg/dL (0.6-1.0) 0.7 mg/dL (0.6-1.0) Estimated GFR (Cockcroft-Gault) 63.7 85.1 BUN/Creatinine Ratio 27 (6-20) Glucose Level 133 mg/dL (70-99) 100 mg/dL (70-99) Calcium Level 8.6 mg/dL (8.5-10.1) 8.1 mg/dL (8.5-10.1) Total Bilirubin 0.3 mg/dL (0.2-1.0) Aspartate Amino Transf (AST/SGOT) 14 U/L (15-37) Alanine Aminotransferase (ALT/SGPT) 21 U/L (14-59) Alkaline Phosphatase 83 U/L (46-116) Total Protein 6.3 g/dL (6.4-8.2) Albumin 3.3 g/dL (3.4-5.0) Albumin/Globulin Ratio 1.1 (1.0-1.7) SARS-CoV-2 Antigen (Rapid) Negative (NEGATIVE) Assessment and Plan Assessmemt and Plan Problems Medical Problems: (1) Injury of left upper arm Status: Acute * Available resources Problem List (body system elements) * Impaired fnctnl mobility * Strength * Obesity * ROM * Balance * Coordination * Knowledge-safe techniques * Pain Other Problems * NWB L UE Clinical Presentation * Evolving Evaluation Complexity Level * Moderate Complexity Pt/caregiver agrees with plan of care/goals * Yes Patient condition at conclusion of therapy * Pt in chair * Call light in reach * Phone in reach * PtIn no apparent distress * Pt denies further needs * RN/MOTOR CHECKER with patient * Visitor with patient Communicated Patient Care With (Name, Title) * Isaiah RN; Dr. Lawson; Velma, OT; Sergio, Goal 1 - Bed Mobility Assistance Required * Independent Goal 2 - Transfers Assistance Required * Independent Goal 2 - Transfer Type * Sit to Stand Goal 3 - Ambulation Assistance Required * Independent Goal 3 - Ambulation Distance * 250' Goal 3 - Ambulation Device * No Device Goal 4 - Stairs Assistance Required * Independent Goal 4 - Number of Stairs * 5-9 Goal 4 - Device on Stairs * Rail on Right Treatment Plan * Therapeutic Exercise * Bed Mobility Training * Transfer training * Gait Training Frequency of Treatment Expected * 7 visits/week Duration of Treatment Expected * 1 week Discharge Recommendations * Home with Assistance * Home when goals met Discharge Recommendation - DME * Cane * Tier And Detonator * Sock Aide * in order to complete ADLs * and ambulation safely Discharge Recommendation Comments * F/U with MD;sling use as instructed;family assist;gait belt;cane if needed; Comment Review of Relevant I have reviewed the following items marilyn (where applicable) has been applied. Labs Laboratory Tests Test 07/27/20 14:09 07/27/20 15:10 07/28/20 07:40 White Blood Count 10.8 x10^3/uL (4.0-11.0) 7.7 x10^3/uL (4.0-11.0) Red Blood Count 4.48 x10^6/uL (3.50-5.40) 4.36 x10^6/uL (3.50-5.40) Hemoglobin 14.5 g/dL (12.0-15.5) 13.9 g/dL (12.0-15.5) Hematocrit 44.0 % (36.0-47.0) 42.1 % (36.0-47.0) Mean Corpuscular Volume 98 fL (79-100) 96 fL (79-100) Mean Corpuscular Hemoglobin 33 pg (25-35) 32 pg (25-35) Mean Corpuscular Hemoglobin Concent 33 g/dL (31-37) 33 g/dL (31-37) Red Cell Distribution Width 15.0 % (11.5-14.5) 15.1 % (11.5-14.5) Platelet Count 213 x10^3/uL (140-400) 217 x10^3/uL (140-400) Neutrophils (%) (Auto) 83 % (31-73) 68 % (31-73) Lymphocytes (%) (Auto) 11 % (24-48) 24 % (24-48) Monocytes (%) (Auto) 4 % (0-9) 6 % (0-9) Eosinophils (%) (Auto) 1 % (0-3) 1 % (0-3) Basophils (%) (Auto) 1 % (0-3) 1 % (0-3) Neutrophils # (Auto) 9.0 x10^3/uL (1.8-7.7) 5.3 x10^3/uL (1.8-7.7) Lymphocytes # (Auto) 1.2 x10^3/uL (1.0-4.8) 1.8 x10^3/uL (1.0-4.8) Monocytes # (Auto) 0.5 x10^3/uL (0.0-1.1) 0.5 x10^3/uL (0.0-1.1) Eosinophils # (Auto) 0.1 x10^3/uL (0.0-0.7) 0.1 x10^3/uL (0.0-0.7) Basophils # (Auto) 0.1 x10^3/uL (0.0-0.2) 0.1 x10^3/uL (0.0-0.2) Sodium Level 143 mmol/L (136-145) 142 mmol/L (136-145) Potassium Level 4.2 mmol/L (3.5-5.1) 3.8 mmol/L (3.5-5.1) Chloride Level 109 mmol/L (98-107) 110 mmol/L (98-107) Carbon Dioxide Level 24 mmol/L (21-32) 23 mmol/L (21-32) Anion Gap 10 (6-14) 9 (6-14) Blood Urea Nitrogen 24 mg/dL (7-20) 14 mg/dL (7-20) Creatinine 0.9 mg/dL (0.6-1.0) 0.7 mg/dL (0.6-1.0) Estimated GFR (Cockcroft-Gault) 63.7 85.1 BUN/Creatinine Ratio 27 (6-20) Glucose Level 133 mg/dL (70-99) 100 mg/dL (70-99) Calcium Level 8.6 mg/dL (8.5-10.1) 8.1 mg/dL (8.5-10.1) Total Bilirubin 0.3 mg/dL (0.2-1.0) Aspartate Amino Transf (AST/SGOT) 14 U/L (15-37) Alanine Aminotransferase (ALT/SGPT) 21 U/L (14-59) Alkaline Phosphatase 83 U/L (46-116) Total Protein 6.3 g/dL (6.4-8.2) Albumin 3.3 g/dL (3.4-5.0) Albumin/Globulin Ratio 1.1 (1.0-1.7) SARS-CoV-2 Antigen (Rapid) Negative (NEGATIVE) Laboratory Tests Test 07/27/20 14:09 07/27/20 15:10 07/28/20 07:40 White Blood Count 10.8 x10^3/uL (4.0-11.0) 7.7 x10^3/uL (4.0-11.0) Red Blood Count 4.48 x10^6/uL (3.50-5.40) 4.36 x10^6/uL (3.50-5.40) Hemoglobin 14.5 g/dL (12.0-15.5) 13.9 g/dL (12.0-15.5) Hematocrit 44.0 % (36.0-47.0) 42.1 % (36.0-47.0) Mean Corpuscular Volume 98 fL (79-100) 96 fL (79-100) Mean Corpuscular Hemoglobin 33 pg (25-35) 32 pg (25-35) Mean Corpuscular Hemoglobin Concent 33 g/dL (31-37) 33 g/dL (31-37) Red Cell Distribution Width 15.0 % (11.5-14.5) 15.1 % (11.5-14.5) Platelet Count 213 x10^3/uL (140-400) 217 x10^3/uL (140-400) Neutrophils (%) (Auto) 83 % (31-73) 68 % (31-73) Lymphocytes (%) (Auto) 11 % (24-48) 24 % (24-48) Monocytes (%) (Auto) 4 % (0-9) 6 % (0-9) Eosinophils (%) (Auto) 1 % (0-3) 1 % (0-3) Basophils (%) (Auto) 1 % (0-3) 1 % (0-3) Neutrophils # (Auto) 9.0 x10^3/uL (1.8-7.7) 5.3 x10^3/uL (1.8-7.7) Lymphocytes # (Auto) 1.2 x10^3/uL (1.0-4.8) 1.8 x10^3/uL (1.0-4.8) Monocytes # (Auto) 0.5 x10^3/uL (0.0-1.1) 0.5 x10^3/uL (0.0-1.1) Eosinophils # (Auto) 0.1 x10^3/uL (0.0-0.7) 0.1 x10^3/uL (0.0-0.7) Basophils # (Auto) 0.1 x10^3/uL (0.0-0.2) 0.1 x10^3/uL (0.0-0.2) Sodium Level 143 mmol/L (136-145) 142 mmol/L (136-145) Potassium Level 4.2 mmol/L (3.5-5.1) 3.8 mmol/L (3.5-5.1) Chloride Level 109 mmol/L (98-107) 110 mmol/L (98-107) Carbon Dioxide Level 24 mmol/L (21-32) 23 mmol/L (21-32) Anion Gap 10 (6-14) 9 (6-14) Blood Urea Nitrogen 24 mg/dL (7-20) 14 mg/dL (7-20) Creatinine 0.9 mg/dL (0.6-1.0) 0.7 mg/dL (0.6-1.0) Estimated GFR (Cockcroft-Gault) 63.7 85.1 BUN/Creatinine Ratio 27 (6-20) Glucose Level 133 mg/dL (70-99) 100 mg/dL (70-99) Calcium Level 8.6 mg/dL (8.5-10.1) 8.1 mg/dL (8.5-10.1) Total Bilirubin 0.3 mg/dL (0.2-1.0) Aspartate Amino Transf (AST/SGOT) 14 U/L (15-37) Alanine Aminotransferase (ALT/SGPT) 21 U/L (14-59) Alkaline Phosphatase 83 U/L (46-116) Total Protein 6.3 g/dL (6.4-8.2) Albumin 3.3 g/dL (3.4-5.0) Albumin/Globulin Ratio 1.1 (1.0-1.7) SARS-CoV-2 Antigen (Rapid) Negative (NEGATIVE) Medications Current Medications Sodium Chloride 500 ml @ 500 mls/hr 1X ONCE IV Last administered on 07/27/20at 13:49; Start 07/27/20 at 13:30; Stop 07/27/20 at 14:29; Status DC Hydromorphone HCl (Dilaudid) 0.5 mg PRN Q30MIN PRN IV SEVERE PAIN 7-10 Last administered on 07/27/20at 19:31; Start 07/27/20 at 15:45; Stop 07/27/20 at 19:32; Status DC Sodium Chloride 1,000 ml @ 100 mls/hr Q10H IV Last administered on 07/27/20at 16:12; Start 07/27/20 at 15:45; Stop 07/27/20 at 19:44; Status DC Atenolol (Tenormin) 50 mg DAILY PO ; Start 07/28/20 at 09:00; Stop 07/27/20 at 21:12; Status DC Albuterol Sulfate (Ventolin Neb Soln) 2.5 mg PRN Q6HRS PRN NEB SHORTNESS OF BREATH; Start 07/27/20 at 20:15 Ondansetron HCl (Zofran) 4 mg PRN Q6HRS PRN IVP NAUSEA/VOMITING; Start 07/27/20 at 20:15 Bisacodyl (Dulcolax Supp) 10 mg PRN DAILY PRN [place] CONSTIPATION; Start 07/27/20 at 20:15 Heparin Sodium (Porcine) (Heparin Sodium) 5,000 unit Q8HRS SQ Last administered on 07/27/20at 22:17; Start 07/27/20 at 22:00 Sodium Chloride 1,000 ml @ 100 mls/hr Q10H IV Last administered on 07/28/20at 02:29; Start 07/27/20 at 20:30 Atenolol (Tenormin) 50 mg HS PO Last administered on 07/27/20at 22:12; Start at 21:30 Hydromorphone HCl (Dilaudid) 0.5 mg PRN Q4HRS PRN IVP SEVERE PAIN 7-10 Last administered on 07/28/20at 00:28; Start 07/27/20 at 21:45 Flecainide Acetate (Tambocor) 100 mg Q12HR PO ; Start 07/28/20 at 09:00; Stop 07/27/20 at 23:16; Status DC Flecainide Acetate (Tambocor) 100 mg Q12HR PO Last administered on 07/28/20at 00:21; Start 07/27/20 at 23:30 Active Scripts Active Reported [place] Thyroid (Thyroid,Pork) 60 Mg Tablet 1 Tab PO DAILY Atenolol 50 Mg Tablet 1 Tab PO DAILY Flecainide Acetate 100 Mg Tablet 1 Tab PO BID Aspirin 325 Mg Tablet 1 Tab PO DAILY Vitals/I & O Vital Sign - Last 24 Hours 07/27/20 07/27/20 07/27/20 07/27/20 13:15 13:33 13:51 15:17 Temp 97.9 97.9 Pulse 68 62 60 116 Resp 18 18 18 18 B/P (MAP) 107/68 (81) 98/52 (67) 100/54 (69) 115/62 (79) Pulse Ox 96 95 97 99 O2 Delivery Room Air Room Air Room Air Room Air 07/27/20 07/27/20 07/27/20 07/27/20 15:36 16:06 16:11 16:36 Pulse 114 118 130 Resp 18 18 18 18 B/P (MAP) 102/55 (71) 107/75 (86) 98/55 (69) Pulse Ox 97 97 98 95 O2 Delivery Room Air Room Air Room Air 07/27/20 07/27/20 07/27/20 07/27/20 16:41 17:06 17:36 18:06 Pulse 122 122 120 Resp 18 17 20 21 B/P (MAP) 96/62 (73) 99/67 (78) 103/78 (86) Pulse Ox 98 93 91 93 O2 Delivery Room Air Room Air Room Air 07/27/20 07/27/20 07/27/20 07/27/20 18:36 19:06 19:31 19:35 Temp 98.8 98.8 Pulse 116 122 90 Resp 21 19 18 16 B/P (MAP) 102/73 (83) 107/79 (88) 121/70 (87) Pulse Ox 96 95 98 97 O2 Delivery Room Air Room Air Room Air 07/27/20 07/27/20 07/27/20 07/28/20 19:45 22:12 23:00 00:21 Temp 97.9 97.9 Pulse 85 79 79 Resp 18 B/P (MAP) 122/74 113/64 (80) 113/64 Pulse Ox 96 O2 Delivery Room Air Room Air 07/28/20 07/28/20 07/28/20 07/28/20 00:28 00:58 03:00 07:00 Temp 98.9 98.6 98.9 98.6 Pulse 67 75 Resp 18 18 19 B/P (MAP) 107/56 (73) 116/65 (82) Pulse Ox 98 98 96 O2 Delivery Room Air Room Air Room Air Room Air Intake and Output 07/27/20 07/27/20 07/28/20 15:00 23:00 07:00 Intake Total 500 ml 0 ml Balance 500 ml 0 ml Justicifation of Admission Dx: Justifications for Admission: Justification of Admission Dx: Yes JAIDEN ANTOINE MD Jul 28, 2020 10:51
[2020-07-28 11:00] VITALS: BP 130/66
[2020-07-28] MEDS ORDERED: traMADol 50 MG TABLET PO PRN ×2 (11:15→13:45)
[2020-07-28 15:00] VITALS: BP 141/88
--- NOTE | 2020-07-28 19:31 | NUR ---
Pt admitted for humerus fx but surgeon did not feel surgery was necessary and communicated this to the ER physician, but patient was admitted and was frustrated as to why. Surgeon came up today and did not understand why she was admitted but then gave orders for PT and OT to eval and tx prior to discharging. PT was able to see pt but OT was not. Dr. Santana did not advise discharge until patient was seen by OT. Pt decided to leave AMA.
--- NOTE | 2020-07-28 22:10 | PDOC3 ---
Discharge Summary Date of Admission: Jul 27, 2020 Date of Discharge: Jul 28, 2020 Follow-Up: Other (LEFT AMA BEFORE MY CLEARANCE) Admitting Diagnosis comment: impression Assessment/Plan Acute displaced humeral diaphysis fracture MORBID OBESITY Gait instability fall risk high Plan: admit Pain Management Consult to Orthopedics; plan is for nonoperative treatment. Sling and splint. Resume home medications VTE prophylaxis Full Code PT/OT to clear for stable ADL'S LEFT AMA 07/28 NEED ORTHOSTATIC BP Justifications for Admission Justifications for Admission Other Justification History of Present Illness History of Present Illness History of Present Illness History of Present Illness 59 yo female who presents with acute left humeral fracture. She suffered a mecha nical fall down the stairs of her home around 1100, landing on her left side. She reports left arm pain, 10/10. She immediately contacted EMS. Pain is aggravated by movement, improved with pain medications. She denies any fever, chills, or head injury. Past Medical History Cardiovascular: AFIB Pulmonary: Asthma Endocrine: Hypothyroidism Past Surgical History Past Surgical History: Total hip replacement, Hysterectomy Family History Family History: Other (Non-contributory) Social History Smoke: Quit ALCOHOL: occassional Drugs: None Vitals Vitals Vital Signs Date Time Temp Pulse Resp B/P (MAP) Pulse Ox O2 Delivery O2 Flow Rate FiO2 07/28/20 07:00 98.6 75 19 116/65 (82) 96 Room Air 98.6 Physical Exam General: Alert, Oriented X3, Cooperative, No acute distress, mild distress Heart: No murmurs Abdomen: Normal bowel sounds, Soft, No tenderness, No hepatosplenomegaly, No masses Extremities: Normal pulses, Other (Left arm wrapped and bandaged) Skin: No rashes, No breakdown, No significant lesion FINAL DIAGNOSIS Problems Medical Problems: (1) Injury of left upper arm Status: Acute Brief Hospital Course Ms. Mackay is a 59 old [sex] who presented with [ ] CONDITION AT DISCHARGE: Comment (LEFT AMA) Discharge Medications Current Medications Sodium Chloride 500 ml @ 500 mls/hr 1X ONCE IV Last administered on 07/27/20at 13:49; Start 07/27/20 at 13:30; Stop 07/27/20 at 14:29; Status DC Hydromorphone HCl (Dilaudid) 0.5 mg PRN Q30MIN PRN IV SEVERE PAIN 7-10 Last administered on 07/27/20at 19:31; Start 07/27/20 at 15:45; Stop 07/27/20 at 19:32; Status DC Sodium Chloride 1,000 ml @ 100 mls/hr Q10H IV Last administered on 07/27/20at 16:12; Start 07/27/20 at 15:45; Stop 07/27/20 at 19:44; Status DC Atenolol (Tenormin) 50 mg DAILY PO ; Start 07/28/20 at 09:00; Stop 07/27/20 at 21:12; Status DC Albuterol Sulfate (Ventolin Neb Soln) 2.5 mg PRN Q6HRS PRN NEB SHORTNESS OF BREATH; Start 07/27/20 at 20:15; Stop 07/28/20 at 19:55; Status DC Ondansetron HCl (Zofran) 4 mg PRN Q6HRS PRN IVP NAUSEA/VOMITING; Start 07/27/20 at 20:15; Stop 07/28/20 at 19:55; Status DC Bisacodyl (Dulcolax Supp) 10 mg PRN DAILY PRN [place] CONSTIPATION; Start 07/27/20 at 20:15; Stop 07/28/20 at 19:55; Status DC Heparin Sodium (Porcine) (Heparin Sodium) 5,000 unit Q8HRS SQ Last administered on 07/28/20at 14:29; Start 07/27/20 at 22:00; Stop 07/28/20 at 19:55; Status DC Sodium Chloride 1,000 ml @ 100 mls/hr Q10H IV Last administered on 07/28/20at 02:29; Start 07/27/20 at 20:30; Stop 07/28/20 at 19:55; Status DC Atenolol (Tenormin) 50 mg HS PO Last administered on 07/27/20at 22:12; Start 07/27/20 at 21:30; Stop 07/28/20 at 19:55; Status DC Hydromorphone HCl (Dilaudid) 0.5 mg PRN Q4HRS PRN IVP SEVERE PAIN 7-10 Last administered on 8/29/20at 11:13; Start 07/27/20 at 21:45; Stop 07/28/20 at 19:55; Status DC Flecainide Acetate (Tambocor) 100 mg Q12HR PO ; Start 07/28/20 at 09:00; Stop 07/27/20 at 23:16; Status DC Flecainide Acetate (Tambocor) 100 mg Q12HR PO Last administered on 07/28/20at 00:21; Start 07/27/20 at 23:30; Stop 07/28/20 at 19:55; Status DC Tramadol HCl (Ultram) 50 mg PRN Q4HRS PRN PO PAIN; Start 07/28/20 at 11:15; Stop 07/28/20 at 19:55; Status DC Tramadol HCl (Ultram) 100 mg PRN Q4HRS PRN PO PAIN Last administered on 07/28/20at 15:30; Start 07/28/20 at 13:45; Stop 07/28/20 at 19:55; Status DC Active Scripts Active Reported [place] Thyroid (Thyroid,Pork) 60 Mg Tablet 1 Tab PO DAILY Atenolol 50 Mg Tablet 1 Tab PO DAILY Flecainide Acetate 100 Mg Tablet 1 Tab PO BID Aspirin 325 Mg Tablet 1 Tab PO DAILY Vital Signs Vital Signs Date Time Temp Pulse Resp B/P (MAP) Pulse Ox O2 Delivery O2 Flow Rate FiO2 07/28/20 16:30 Room Air 07/28/20 15:30 96 07/28/20 15:00 97.5 83 18 141/88 (105) 97.5 Labs Laboratory Tests Test 07/27/20 14:09 07/27/20 15:10 07/28/20 07:40 White Blood Count 10.8 x10^3/uL (4.0-11.0) 7.7 x10^3/uL (4.0-11.0) Red Blood Count 4.48 x10^6/uL (3.50-5.40) 4.36 x10^6/uL (3.50-5.40) Hemoglobin 14.5 g/dL (12.0-15.5) 13.9 g/dL (12.0-15.5) Hematocrit 44.0 % (36.0-47.0) 42.1 % (36.0-47.0) Mean Corpuscular Volume 98 fL (79-100) 96 fL (79-100) Mean Corpuscular Hemoglobin 33 pg (25-35) 32 pg (25-35) Mean Corpuscular Hemoglobin Concent 33 g/dL (31-37) 33 g/dL (31-37) Red Cell Distribution Width 15.0 % (11.5-14.5) 15.1 % (11.5-14.5) Platelet Count 213 x10^3/uL (140-400) 217 x10^3/uL (140-400) Neutrophils (%) (Auto) 83 % (31-73) 68 % (31-73) Lymphocytes (%) (Auto) 11 % (24-48) 24 % (24-48) Monocytes (%) (Auto) 4 % (0-9) 6 % (0-9) Eosinophils (%) (Auto) 1 % (0-3) 1 % (0-3) Basophils (%) (Auto) 1 % (0-3) 1 % (0-3) Neutrophils # (Auto) 9.0 x10^3/uL (1.8-7.7) 5.3 x10^3/uL (1.8-7.7) Lymphocytes # (Auto) 1.2 x10^3/uL (1.0-4.8) 1.8 x10^3/uL (1.0-4.8) Monocytes # (Auto) 0.5 x10^3/uL (0.0-1.1) 0.5 x10^3/uL (0.0-1.1) Eosinophils # (Auto) 0.1 x10^3/uL (0.0-0.7) 0.1 x10^3/uL (0.0-0.7) Basophils # (Auto) 0.1 x10^3/uL (0.0-0.2) 0.1 x10^3/uL (0.0-0.2) Sodium Level 143 mmol/L (136-145) 142 mmol/L (136-145) Potassium Level 4.2 mmol/L (3.5-5.1) 3.8 mmol/L (3.5-5.1) Chloride Level 109 mmol/L (98-107) 110 mmol/L (98-107) Carbon Dioxide Level 24 mmol/L (21-32) 23 mmol/L (21-32) Anion Gap 10 (6-14) 9 (6-14) Blood Urea Nitrogen 24 mg/dL (7-20) 14 mg/dL (7-20) Creatinine 0.9 mg/dL (0.6-1.0) 0.7 mg/dL (0.6-1.0) Estimated GFR (Cockcroft-Gault) 63.7 85.1 BUN/Creatinine Ratio 27 (6-20) Glucose Level 133 mg/dL (70-99) 100 mg/dL (70-99) Calcium Level 8.6 mg/dL (8.5-10.1) 8.1 mg/dL (8.5-10.1) Total Bilirubin 0.3 mg/dL (0.2-1.0) Aspartate Amino Transf (AST/SGOT) 14 U/L (15-37) Alanine Aminotransferase (ALT/SGPT) 21 U/L (14-59) Alkaline Phosphatase 83 U/L (46-116) Total Protein 6.3 g/dL (6.4-8.2) Albumin 3.3 g/dL (3.4-5.0) Albumin/Globulin Ratio 1.1 (1.0-1.7) Coronavirus (PCR) Not detected (Not Detected) SARS-CoV-2 Antigen (Rapid) Negative (NEGATIVE) Laboratory Tests Test 07/28/20 07:40 White Blood Count 7.7 x10^3/uL (4.0-11.0) Red Blood Count 4.36 x10^6/uL (3.50-5.40) Hemoglobin 13.9 g/dL (12.0-15.5) Hematocrit 42.1 % (36.0-47.0) Mean Corpuscular Volume 96 fL (79-100) Mean Corpuscular Hemoglobin 32 pg (25-35) Mean Corpuscular Hemoglobin Concent 33 g/dL (31-37) Red Cell Distribution Width 15.1 % (11.5-14.5) Platelet Count 217 x10^3/uL (140-400) Neutrophils (%) (Auto) 68 % (31-73) Lymphocytes (%) (Auto) 24 % (24-48) Monocytes (%) (Auto) 6 % (0-9) Eosinophils (%) (Auto) 1 % (0-3) Basophils (%) (Auto) 1 % (0-3) Neutrophils # (Auto) 5.3 x10^3/uL (1.8-7.7) Lymphocytes # (Auto) 1.8 x10^3/uL (1.0-4.8) Monocytes # (Auto) 0.5 x10^3/uL (0.0-1.1) Eosinophils # (Auto) 0.1 x10^3/uL (0.0-0.7) Basophils # (Auto) 0.1 x10^3/uL (0.0-0.2) Sodium Level 142 mmol/L (136-145) Potassium Level 3.8 mmol/L (3.5-5.1) Chloride Level 110 mmol/L (98-107) Carbon Dioxide Level 23 mmol/L (21-32) Anion Gap 9 (6-14) Blood Urea Nitrogen 14 mg/dL (7-20) Creatinine 0.7 mg/dL (0.6-1.0) Estimated GFR (Cockcroft-Gault) 85.1 Glucose Level 100 mg/dL (70-99) Calcium Level 8.1 mg/dL (8.5-10.1) Allergies Allergies Coded Allergies Type Severity Reaction Last Updated Verified hydrocodone Allergy Mild N/V,"MAKES ME MEAN" 07/27/20 Yes oxycodone Allergy Mild N/V/"MAKES ME MEAN" 07/27/20 Yes Disposition/Orders: Other (LEFT AMA) Justicifation of Admission Dx: Justifications for Admission: Justification of Admission Dx: Yes JAIDEN ANTOINE MD Jul 28, 2020 22:10
== END 2020-07-28 18:40 | disposition left against medical advice (07) ==
LOC: ER 13:15 → ED HOLD 14:33 → 4 NORTH 16:12
PROVIDERS: ADMIT Family Medicine; ATTEND Family Medicine
DX: S42.492A Other displaced fracture of lower end of left humerus, initial encounter for closed fracture (principal); Z20.828 Contact with and (suspected) exposure to other viral communicable diseases; E66.01 Morbid (severe) obesity due to excess calories; J45.909 Unspecified asthma, uncomplicated; I48.91 Unspecified atrial fibrillation; E03.9 Hypothyroidism, unspecified; Z90.710 Acquired absence of both cervix and uterus; Z87.891 Personal history of nicotine dependence; Z96.649 Presence of unspecified artificial hip joint; Z91.81 History of falling; W10.8XXA Fall (on) (from) other stairs and steps, initial encounter; Y93.89 Activity, other specified; Y92.098 Other place in other non-institutional residence as the place of occurrence of the external cause; Y99.8 Other external cause status
CPT/HCPCS: 36415; 73030; 73060; 80048; 80053; 85025; 86850; 86900; 86901; 87426; 96361; 96372; 96374; 96376; 97162; 97530; 99284; G0378; J1170; J1644; J7030; J7040; U0003; G0379; A4565